=== PATIENT | male | born 1960 | race Caucasian/White ===

== ENCOUNTER → 2019-04-02 06:31 | Outpatient (CLI) | payer OTHER, SELFPAY ==
[2019-03-19 10:23] VITALS: BMI 34.9
--- NOTE | 2019-04-02 06:35 | CT_ITS ---
STUDY: CT SCAN HIP LEFT REASON FOR EXAM: Male, 58 years old. LEFT HIP-ISABELL PROTOCOL RADIATION DOSAGE (If Supplied By Facility): CTDIvol = ( 18.03 ) mGy, DLP = ( 1251.07 ) mGycm. Individualized dose optimization techniques were used for this CT.? TECHNIQUE: Multiple axial tomographic images of the hip joints were obtained for the OMAR O protocol. Sagittal and coronal reconstruction was obtained as well. COMPARISON: None. FINDINGS: There is a marked degree of the joint space narrowing and osteoarthritis of the left hip joint. Multiple subchondral cysts are seen. There is also evidence of acetabular spurring. CT/Extremity Lower without Contra IMPRESSION: Moderate degree of osteoarthritis and degenerative changes of the left hip joint with multiple subchondral cysts and acetabular spurring. Electronically Signed: Fabrice Conklin, at 9:13 EST , Service support ,
== END ==
PROVIDERS: Family Provider Family Medicine; PCP Family Medicine; Referring Provider Specialist; Visit Provider Specialist
DX: M16.12 Unilateral primary osteoarthritis, left hip (principal)
CPT/HCPCS: 73700

== ENCOUNTER → 2019-04-04 13:44 | Outpatient (CLI) | payer OTHER, SELFPAY ==
[2019-03-19 10:23] VITALS: BMI 34.9
[2019-04-04 16:00] LABS: Albumin, Serum 3.6 g/dL (3.2-5.0)
== END ==
PROVIDERS: PCP Family Medicine; Referring Provider Specialist; Visit Provider Specialist
DX: Z01.812 Encounter for preprocedural laboratory examination (principal)
CPT/HCPCS: 36415; 82040

== ENCOUNTER 2019-04-11 06:44 | Day surgery (SDC) | payer OTHER, SELFPAY ==
[2019-03-19 10:23] VITALS: BP 131/71; PULSE 69; RESP 16; TEMP 36.8; O2SAT 95; BMI 34.9
--- NOTE | 2019-03-19 10:54 | SDCEKG_ITS ---
Test Reason : Blood Pressure : / mmHG Vent. Rate : 056 BPM Atrial Rate : 056 BPM P-R Int : 158 ms QRS Dur : 088 ms QT Int : 378 ms P-R-T Axes : 046 001 025 degrees QTc Int : 364 ms Sinus bradycardia Otherwise normal ECG Confirmed by CIARA RAYMUNDO, LEDA ([id number]), editor news TANA HANKS ([id number]) on 03/21/2019 10:37:25 AM Referred By: Shan Sims Confirmed By:LEDA URBINA MD
[2019-03-19 11:19] LABS: Absolute Lymphocyte Count 1.12 X10^3/uL (0.83-4.51); Absolute Neutrophil Count 3.9 X10^3/uL (2.0-7.7); Basophil# 0.03 X10^3/uL; Basophil% 0.5 % (0-1); Eosinophil# 0.11 X10^3/uL; Hematocrit 45.7 % (40-54); Hemoglobin 15.3 g/dL (13.0-16.5); Lymphocyte # 1.12 X10^3/ul (4.0); Lymphocyte % 19.9 % (19-41); Mean Corp Hgb Conc 33.5 g/dL (32-36); Mean Corpuscular Hgb 30.8 pg (27.0-32.0); Mean Platelet Vol. 9.1 fl (6.2-12.0); Monocyte# 0.44 X10^3/uL; Monocyte% 7.8 % (0-10); NRBC Flagged by Analyzer 0 % (0-5); Neutrophil # 3.91 X10^3/uL (2.7-7.7); Neutrophil % 69.6 % (47-70); Platelet Count 251 K/mm3 (150-450); RBC Distribution Width CV 12.6 % (11.6-14.6); RBC Distribution Width SD 42.7 fl (35.1-43.9); Red Blood Count 4.97 M/mm3 (4.6-6.2); White Blood Count 5.6 K/mm3 (4.4-11.0)
[2019-03-19 12:07] LABS: Anion Gap 2 (5-15); BUN 17 mg/dL (7-18); BUN/Creat Ratio 20.9 RATIO (10-20); Calcium,Total 8.9 mg/dL (8.5-10.1); Chloride 110 mmol/L (98-107); Creatinine, Serum 0.81 mg/dL (0.70-1.30); EST Glomerular Filtration Rate 103 mL/min (>60); Est Glom Filt Rate - Afr Amer 125 mL/min (>60); Estimated Creatinine Clearance 96.98 ml/min; Glucose 88 mg/dL (74-106); Potassium 4.4 mmol/L (3.5-5.1); Sodium Level 139 mmol/L (136-145)
--- NOTE | 2019-03-19 12:39 | HP.PCM_ITS ---
History and Physical History and Physical Patient Name: iRley Echavarria : 1960 From: MITCH WHATLEY PA-C DATE OF SURGERY: 04/11/2019 SCHEDULED PROCEDURE: left total hip arthroplasty HISTORY OF PRESENT ILLNESS: Preoperative history and physical exam was performed on March 19, 2019. This is a 58-year-old male who is been having ongoing pain for over 1 year with regards to his left hip. Patient states the pain has been progressively getting worse. Patient's pain is aching, sharp, sore. Pain is increased going up and down stairs, walking. Patient has difficult time with activities of daily living including getting dressed while trying to put on shoes and socks, sleeping, and running. Pain is located in the groin. Patient does have start up pain. Pain awakens him at night occasionally. He has difficult time sleeping. Patient has tried rest with minimal relief. He has tried home exercises and career transition specialist with minimal relief. Patient also also tried nonsteroidal anti-inflammatories including ibuprofen and meloxicam. He denies previous surgeries on the left hip. Denies any recent fevers, chills, recent infections. After failing conservative measures and discussing treatment options with Dr. Shan Sims, the patient does wish to proceed with a left total hip arthroplasty. We are obtaining surgical clearance from his primary care physician Dr. Street. Patient does have medical history pertinent for sleep apnea in which she uses CPAP machine. REVIEW OF SYSTEMS: ROS: Const: Denies change in appetite, fever and weight change. CV: Denies chest pain, heart murmur and irregular heartbeat. Resp: Denies cough, pneumonia, shortness of breath, tuberculosis and wheezing. GI: Denies constipation, diarrhea, heartburn, nausea, rectal itching, bloody stools and vomiting. : Denies incontinence. Musculo: Reports pain and trouble walking, but denies leg swelling and weakness. Skin: Denies Raynaud's, history of shingles and tattoo. Neuro: Denies ambulatory dysfunction, dizziness, numbness/tingling and tremor. Psych: Denies anxiety, insomnia and stress. Elio/Lymph: Denies anemia, bleeding/bruising tendency and past transfusion. Reviewed, no changes. PAST MEDICAL HISTORY: Advance Care Plan: PMH: Medical Problems: Sleep Apnea Accidents: LT Arm FX - A CHILD Surgical Hx: None Anesthesia Complications: None Assistive Devices: Glasses, Hearing Aid, Cpap Reviewed and updated. 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 Personal Habits: Cigarette Use: Never Smoked Cigarettes.Smokeless Tobacco: Never Used Smokeless Tobacco.E-Cigarette Use: Never used.Alcohol: Denies use.Drug Use: Denies Use.Enjoy Exercising: Exercises 1-3 x/month. Reviewed, no changes. VITALS: Ht: 69.5 Wt: 240lb Wt k.864 BMI: 34.9 BP: 122/78 Pulse: 76 Resp: 16 T: 97.9 T: 36.6C ALLERGIES: No Known Drug Allergy MEDICATIONS: Oxycodone HCL 5 mg 1-2 tab by mouth every 4 hours, Promethazine HCL 12.5 mg 1-2 tablets by mouth every 6 hours, Famotidine 20 mg 1 by mouth every day, Meloxicam 15 mg take 1 tablet by mouth every day, Magnesium 300 mg 1 tab by mouth daily, Zinc 50 mg 1 tab by mouth daily, Vitamin D3 125MG - 2 caps by mouth daily, Turmeric 133MG - 2 tabs by mouth daily PRE-OP EXAM: General appearance:NORMAL Other: Eyes: Conjunctivae and lids: NORMAL Pupils: ERR Ears, Nose, Mouth, and Throat: NORMAL Other: Inspection of lips, teeth and gums: NORMAL Other: Neck: Examination of neck: no masses noted. Respiratory: Assessment of respiratory effort: NORMAL Other: Auscultation of lungs: clear to auscultation no wheezes, rhonchi or rales. Cardiovascular: Auscultation of heart: regular rate and rhythm, no murmurs, gallops or rubs. Exam of carotid arteries: NORMAL Other: Gastrointestinal: Exam of abdomen: soft, nontender, nondistended bowel sounds present. PHYSICAL EXAMINATION: Patient does walk with an antalgic gait. Left hip is cool to touch without erythema or signs of infection. Patient does have obligatory external rotation with flexion on the left hip. Range of motion left hip: Flexion 90, internal rotation 10, external rotation 25. Pain is increased with range of motion. There is 2 mm shortness on the left when compared to the right lower extremity. Sensation intact to light touch. Neurovascularly intact. IMAGING STUDIES: X-rays were obtained at [facility] [place] on March 19, 2019 including 3 views AP pelvis, AP left hip, crossfire lateral left hip reveals no acute findings for fracture or dislocation. Patient has severe end-stage osteoarthritis of the left hip with complete loss of joint space, subchondral sclerosis, and osteophyte formation. There is subchondral cyst formation in the acetabulum and femoral head resulting and femoral head collapse and shortening of the left hip. Joint space narrowing with osteophyte formation, subchondral sclerosis with the right hip. IMPRESSION: 1. Severe left hip osteoarthritis 2. Sleep apnea PLAN: Dr. Shan Sims did discuss and review with the patient all treatment options including surgical versus nonsurgical options. Patient does wish to proceed with the above-stated procedure. Potential risks, benefits, and complications of the procedure were discussed in detail including but not limited to , infection, nerve and blood vessel damage, persistent pain, numbness, tingling, paresthesias, blood clot, pulmonary embolism, and requirement for possible further surgery. The patient expressed full understanding and has no further questions for the doctor. Patient does agree to proceed with the above-stated procedure and has signed the surgery consent form. This dictation was created using voice recognition software. Phonetic and/or grammatical errors may exist. ___ I have re-examined the patient. There are no clinical changes since date of exam. ___ See progress notes for changes. ___ Dictated on admission Date: Time: Signature:
[2019-04-11] VITALS (11 sets, daily range): BP systolic 98–128; BP diastolic 67–83; PULSE 72–88; RESP 16; TEMP 36.3–36.9; O2SAT 92–99; BMI 34.9
[2019-04-11] MEDS: Gabapentin 600 MG Tablet PO (06:45)
[2019-04-11] MEDS: Magnesium Sulfate 4gm/100mL 4 GM/100 ML IV.SOLN. IV (07:23)
[2019-04-11] MEDS: Acetaminophen 500 MG Tablet 1000 MG PO ×2 (07:24→14:00)
[2019-04-11] MEDS: Scopolamine 1mg/72hr Patch 1 PATCH TRANSDERM. (07:25)
[2019-04-11] MEDS: Celecoxib 200 MG Capsule 400 MG PO (07:26)
[2019-04-11 07:30] LABS: Bedside Glucose 74 mg/dL (70-110)
[2019-04-11] MEDS: Lactated Ringers 1,000 ML 100 ML IV (07:33)
[2019-04-11] MEDS: Cefazolin 2 GM in 0.9% Normal Saline 100 ML IV (08:40)
--- NOTE | 2019-04-11 08:45 | RAD_ITS ---
STUDY: X-RAY - PELVIS AND LEFT HIP REASON FOR EXAM: Male, 58 years old. TOT. ANTERIOR HIP IN O.R. 7.6 SEC. FL. TECHNIQUE: 3 intraoperative views of the pelvis and hip were obtained. COMPARISON: None. FINDINGS: The patient is status post left hip replacement. There is good alignment. RAD/Hip 1 view with Pelvis IMPRESSION: Status post left hip replacement. Electronically Signed: Fabrice Conklin, at 12:22 EST , Service support ,
[2019-04-11] MEDS: dexAMETHasone 10 MG/ML Vial IV (08:58)
--- NOTE | 2019-04-11 10:22 | PCM.OPRPT ---
Report of Operation Date of Procedure: 04/11/19 Pre-Operative Diagnosis: Left hip primary osteoarthritis Post-Operative Diagnosis: Left hip primary osteoarthritis Surgery/Procedure Performed:: Left minimally invasive direct anterior robotic assisted total hip replacement Description of Surgical Findings:: Stable hip, equal leg lengths on radiograph research and development director: Ani Palacio Type of Anesthesia:: Spinal Anesthesiologist: Ross Peres Special Medications: 2 g Ancef, 1 g TXA at incision, 1 g TXA closure, 10 mg Decadron, joint cocktail (5 mg Duramorph, 30 mL of 0.5% Ropivicaine, 1000 units of epinephrine, 30 mg of Toradol), vancomycin Specimen's removed: Bony cuts Estimated Blood Loss (mL): 200 mL Fluids Replaced: 1000 mL crystalloid Description of Procedure: Components used: 1. Accolade 2 Arnegard femoral stem size 5 127? 2. Mohan trident 2 acetabular shell size 54 mm 3. Mohan X3 polyethylene E 4. Mohan Biolox delta 36mm, +5mm femoral head Brief history operative indications: 58 yo m who failed conservative measures for their hip osteoarthritis. X-rays were consistent with osteoarthritis including joint space narrowing, osteophyte formation and subchondral cysts. Total hip replacement was discussed with the patient with risks and benefits including but not limited to blood loss, DVTs, PEs, neurovascular damage, dislocation, general risks of anesthesia including loss of life. Patient demonstrated an understanding medical clearance is obtained the patient was consented for surgery. Procedure: On the date of procedure the patient's L hip was marked in the preoperative area. Patient was then taken back to the operating room where anesthesia assumed control of the C-spine and airway and administered anesthetic. Patient was transferred to the operating table and placed in the supine position. The hips were placed at the break of the bed and a sacral bump was placed. A checkpoint was placed on the tibial tubercle. The L lower extremity was then prepped out in a sterile fashion using chlorhexidine while the surgeon scrubbed. The PA was vital in the positioning of the patient. Upon reentering the room the L lower extremity was draped in the standard orthopedic fashion and the incision was marked. A timeout was called and everyone agreed upon the side, the site, the procedure be performed, antibody given, and patient's identity. 3 pins were placed in the right iliac crest with a small skin incision and blunt dissection down to the bone. After the skins were placed in a ray was placed for targeting. At this time left hip operative incision was made through skin, subcutaneous tissue, and fat down to fascia. The fascia was then incised and the TFL was retracted laterally. A retractor was placed on the lateral border of the femoral neck. Attention was directed to the inferior portion of the approach and all crossing vessels were identified and appropriately coagulated. A retractor was then placed on the medial portion of the femoral neck. The anterior capsule was then cleared of all soft tissue and then H shaped capsulotomy was made. The retractors were then placed inside the capsule. The checkpoint was placed. The checkpoints were registered. The femoral neck was identified and a cleanup cut was made. At this time a power corkscrew was used to remove the femoral head. Attention was then turned toward the acetabulum where the soft tissues were appropriately retracted and debrided. The acetabulum was registered. The robot was brought into the field sterilely and the acetabulum was reamed to 54 mm. A 54 mm cup was then selected and impacted into place. Acetabular liner was impacted into place and locking mechanism was verified. The position of the acetabular cup was then verified under live fluoroscopy. Attention was then turned to the femur. Soft tissue releases on the medial and lateral femoral neck were appropriately done, the leg was externally rotated and lateralized. A Mcgarry retractor was placed medially and proximally to the greater trochanter this allowed appropriate visualization and exposure of the femoral canal. Rongeour was then used to remove excess lateral bone. A canal finder and entry broach were used to open the proximal canal. Once we verified we were down the femoral canal we subsequently broached up to a size 5 femur. The appropriate neck was placed in the previously selected head was trialed with a +5 mm neck. Traction was pulled and the hip was reduced with internal rotation. Once it was appropriately reduced and stability was checked. There was minimal shuck, equal leg lengths and appropriate stability with hyperextension and external rotation as well as with 90? flexion and internal rotation. Fluoroscopy was then also used to verify the position of the components and leg lengths using the contralateral side for comparison. The trial components were then dislocated the proximal femur was again exposed and the components were removed from the wound. The final components were verified and opened. The wound was copiously irrigated out with normal saline. The acetabulum was checked for any residual debris. The final components were placed and impacted. Traction and internal rotation were again used to reduce the hip. After adequate reduction the hip remained stable with appropriate leg lengths. The final components were once again checked with live fluoroscopy and were found to be satisfactory. The wound was then copiously irrigated with normal saline once more, and hemostasis was obtained. Closure was then done using #1 Vicryl runner to close the fascia. A 2-0 vicryl interuppted sutures were used to close the subcutaneous skin. A 3-0 Monocryl and Steri-Strips were used for final skin closure. A Silverlon dressing was placed. Pins were removed from the contralateral iliac crest and this was closed using 2-0 Vicryl and Monocryl and a sterile dressing was placed. Patient was awakened by anesthesia and transferred to the [facility]. Patient was then transferred to the PACU for recovery. Postoperative plan: Patient will get 24 hours postop antibiotics. Patient will get in-house physical therapy and will be weight-bear as tolerated. Patient will follow up in office in 2 weeks for a wound check and x-rays. - Complications No intraoperative complications - Admit VTE Documentation VTE Present on Admission: No VTE Mechan Device Prophylaxis: SCD's, Thigh High FARTUN Hose VTE Pharm Prophylaxis ordered?: Yes
[2019-04-11] MEDS: Lactated Ringers 1,000 ML 125 ML IV (10:30)
[2019-04-11] MEDS: Lactated Ringers 1,000 ML 999 ML IV (11:16)
--- NOTE | 2019-04-11 11:25 | RAD_ITS ---
STUDY: X-RAY - PELVIS AND LEFT HIP REASON FOR EXAM: Male, 58 years old. Post op TECHNIQUE: 2 views of the pelvis and hip. COMPARISON: Comparison is made with prior study done earlier today. FINDINGS: The patient is status post left hip replacement. There is good alignment. Postoperative soft tissue changes. /Arthritis of the right hip joint with findings suggestive of right femoral acetabular impingement. RAD/HIP, UNI W/ Pelvis 2-3 Views IMPRESSION: Status post left total hip replacement. There is good alignment. Electronically Signed: Fabrice Conklin, at 12:23 EST , Service support ,
[2019-04-11] MEDS: Cefazolin 1 GM/50 ML BAG IV (11:30)
== END 2019-04-11 17:00 | disposition home or self-care (01) ==
LOC: SDC 06:46 → AC 06:47
PROVIDERS: Family Provider Family Medicine; PCP Family Medicine; Referring Provider Specialist; Visit Provider Specialist
PROC: (CPT 27284; principal; 2019-04-11 08:20)
DX: M16.12 Unilateral primary osteoarthritis, left hip (principal); G47.30 Sleep apnea, unspecified; K21.9 Gastro-esophageal reflux disease without esophagitis; Z79.1 Long term (current) use of non-steroidal anti-inflammatories (NSAID); Z79.891 Long term (current) use of opiate analgesic; Z79.899 Other long term (current) drug therapy
CPT/HCPCS: 27130; 73501; 73502; 76000; 80048; 82962; 85025; 87077; 87081; 93005; 97162; C1776; J7040; J7120; J2405

== ENCOUNTER → 2020-02-25 | Outpatient (CLI) | payer OTHER, SELFPAY ==
[2019-04-11 07:33] VITALS: BMI 34.9
--- NOTE | 2020-02-25 | COLBX_PTH ---
PATIENT: JEANINE VALLECILLO LOC: [facility] U#:[id number] AGE/SX: 59/M ROOM: RE02/25/[address]: Dr. Jamie Becerril MD : 1960 BED: DIS: 02/25/2020 SPEC #: [id number] RECD: 02/25/20 15:04 STATUS: APOLONIA HARJINDER #: [id number] MELY: 02/25/20 00:[address]: Jamie Becerril DEPT: SURGICAL PATHOLOGY RECD BY: José Roasles ENTERED: 02/26/20 07:50 SP TYPE: COLON BX OT DR: Dr. Harman Schroeder, [facility] Tissues: COLON BIOPSY Procedures: Surgery Specimen Level IV HEADER OPERATION: Colonoscopy with biopsy PRE-OP DIAGNOSIS: Screening polyp TISSUE SUBMITTED: Right colon polyp biopsy, rule out adenoma MICROSCOPIC DIAGNOSIS Right colon polyp, biopsy: Tubular adenoma. RIGOBERTO:austen 02/27/20 MICROSCOPIC DESCRIPTION Slides are reviewed. GROSS DESCRIPTION Received in fixative is one container labeled with the patient's name and designated right colon polyp. The specimen consists of two irregular fragments of light crews soft tissue that in aggregate measure 0.5 x 0.4 x 0.1 cm. The specimen is totally submitted in one cassette. / SJ:austen 02/26/20 TC:1 CPT: 99726
== END | disposition home or self-care (01) ==
LOC: LABSPEC 15:54
PROVIDERS: PCP Family Medicine; Visit Provider Internal Medicine Gastroenterology
DX: Z12.11 Encounter for screening for malignant neoplasm of colon (principal); K63.5 Polyp of colon
CPT/HCPCS: 88305

== ENCOUNTER → 2020-11-25 09:26 | Outpatient (CLI) | payer OTHER, SELFPAY ==
[2020-11-25 12:10] LABS: Absolute Neutrophil Count 3.7 X10^3/uL (2.0-7.7); Basophil# 0.03 X10^3/uL; Basophil% 0.6 % (0-1); Eosinophil# 0.08 X10^3/uL; Eosinophils% 1.5 % (0-5); Hematocrit 46.9 % (40-54); Hemoglobin 15.9 g/dL (13.0-16.5); Lymphocyte % 18.7 % (19-41); Mean Corp Hgb Conc 33.9 g/dL (32-36); Mean Corpuscular Hgb 31.7 pg (27.0-32.0); Mean Corpuscular Volume 93.6 fL (80-94); Mean Platelet Vol. 9.3 fl (6.2-12.0); Monocyte# 0.52 X10^3/uL; Monocyte% 9.7 % (0-10); NRBC Flagged by Analyzer 0 % (0-5); Neutrophil % 69.3 % (47-70); Platelet Count 248 K/mm3 (150-450); RBC Distribution Width CV 12.6 % (11.6-14.6); RBC Distribution Width SD 43.7 fl (35.1-43.9); Red Blood Count 5.01 M/mm3 (4.6-6.2); White Blood Count 5.3 K/mm3 (4.4-11.0)
[2020-11-25 12:35] LABS: ALB/GLOB Ratio 0.9 RATIO (0.9-2.4); AST(SGOT) 22 U/L (15-37); Alanine Aminotransfer ALT/SGPT 32 U/L (16-61); Albumin, Serum 3.4 g/dL (3.2-5.0); Alkaline Phosphatase 84 U/L (45-117); Anion Gap 6 (5-15); BUN 13 mg/dL (7-18); BUN/Creat Ratio 13.8 RATIO (10-20); Calcium,Total 8.9 mg/dL (8.5-10.1); Chloride 107 mmol/L (98-107); Cholesterol 170 mg/dL (200); Creatinine, Serum 0.94 mg/dL (0.70-1.30); EST Glomerular Filtration Rate 86 mL/min (>60); Est Glom Filt Rate - Afr Amer 104 mL/min (>60); Globulin 3.8 g/dL (2.2-4.2); Glucose 92 mg/dL (74-106); High Density Lipoprotein 44 mg/dL; PSA,Total - Annual Screen 0.69 ng/mL (0.00-4.00); Potassium 4.2 mmol/L (3.5-5.1); Protein, Total 7.2 g/dL (6.4-8.2); Sodium Level 138 mmol/L (136-145); Triglycerides 75 mg/dL; Very Low Density Lipoprotein 15 mg/dL (5-40)
== END ==
PROVIDERS: PCP Family Medicine; Referring Provider Family Medicine; Visit Provider Family Medicine
DX: Z00.00 Encounter for general adult medical examination without abnormal findings (principal); Z12.5 Encounter for screening for malignant neoplasm of prostate
CPT/HCPCS: 36415; 80053; 80061; 84153; 85025; G0103

== ENCOUNTER → 2022-11-23 | Outpatient (CLI) | payer OTHER, SELFPAY ==
[2022-11-23 15:12] LABS: Absolute Lymphocyte Count 1.19 X10^3/uL (0.83-4.51); Absolute Neutrophil Count 4.1 X10^3/uL (2.0-7.7); Basophil# 0.03 X10^3/uL; Basophil% 0.5 % (0-1); Eosinophil# 0.07 X10^3/uL; Eosinophils% 1.2 % (0-5); Hematocrit 49.8 % (40-54); Hemoglobin 15.9 g/dL (13.0-16.5); Lymphocyte # 1.19 X10^3/ul (0.83-4.51); Lymphocyte % 20.5 % (19-41); Mean Corp Hgb Conc 31.9 g/dL (32-36); Mean Corpuscular Hgb 30.8 pg (27.0-32.0); Mean Corpuscular Volume 96.5 fL (80-94); Mean Platelet Vol. 9.9 fl (6.2-12.0); Monocyte# 0.42 X10^3/uL; Monocyte% 7.2 % (0-10); NRBC Flagged by Analyzer 0 % (0-5); Neutrophil # 4.07 X10^3/uL (2.7-7.7); Neutrophil % 70.3 % (47-70); Platelet Count 281 K/mm3 (150-450); RBC Distribution Width CV 12.6 % (11.6-14.6); RBC Distribution Width SD 45.5 fl (35.1-43.9); Red Blood Count 5.16 M/mm3 (4.6-6.2); White Blood Count 5.8 K/mm3 (4.4-11.0)
[2022-11-23 16:11] LABS: ALB/GLOB Ratio 0.9 RATIO (0.9-2.4); AST(SGOT) 26 U/L (15-37); Alanine Aminotransfer ALT/SGPT 29 U/L (16-61); Albumin, Serum 3.6 g/dL (3.2-5.0); Alkaline Phosphatase 90 U/L (45-117); Anion Gap 5 (5-15); BUN 14 mg/dL (7-18); BUN/Creat Ratio 15.4 RATIO (10-20); Calcium,Total 8.8 mg/dL (8.5-10.1); Chloride 106 mmol/L (98-107); Cholesterol 184 mg/dL (200); Creatinine, Serum 0.91 mg/dL (0.70-1.30); EST Glomerular Filtration Rate 89 mL/min (>60); Est Glom Filt Rate - Afr Amer 108 mL/min (>60); Globulin 3.8 g/dL (2.2-4.2); Glucose 98 mg/dL (74-106); High Density Lipoprotein 48 mg/dL; Potassium 4.6 mmol/L (3.5-5.1); Protein, Total 7.4 g/dL (6.4-8.2); Sodium Level 139 mmol/L (136-145); Triglycerides 78 mg/dL; Very Low Density Lipoprotein 16 mg/dL (5-40)
== END | disposition home or self-care (01) ==
LOC: BFHLAB 11:36
PROVIDERS: PCP Family Medicine; Referring Provider Family Medicine; Visit Provider Family Medicine
DX: Z00.00 Encounter for general adult medical examination without abnormal findings (principal); Z12.5 Encounter for screening for malignant neoplasm of prostate
CPT/HCPCS: 36415; 80053; 80061; 84153; 85025; G0103

== ENCOUNTER 2023-04-13 05:21 | Day surgery (SDC) | payer OTHER, SELFPAY ==
[2023-03-16 08:54] LABS: Absolute Lymphocyte Count 0.76 X10^3/uL (0.83-4.51); Absolute Neutrophil Count 3.3 X10^3/uL (2.0-7.7); Basophil# 0.03 X10^3/uL; Basophil% 0.6 % (0-1); Eosinophil# 0.09 X10^3/uL; Eosinophils% 1.9 % (0-5); Hematocrit 44.9 % (40-54); Hemoglobin 15.2 g/dL (13.0-16.5); Lymphocyte # 0.76 X10^3/ul (0.83-4.51); Lymphocyte % 16.2 % (19-41); Mean Corp Hgb Conc 33.9 g/dL (32-36); Mean Corpuscular Hgb 32.3 pg (27.0-32.0); Mean Corpuscular Volume 95.5 fL (80-94); Mean Platelet Vol. 8.7 fl (6.2-12.0); Monocyte# 0.51 X10^3/uL; Monocyte% 10.9 % (0-10); NRBC Flagged by Analyzer 0 % (0-5); Neutrophil # 3.28 X10^3/uL (2.7-7.7); Neutrophil % 70.2 % (47-70); Platelet Count 220 K/mm3 (150-450); RBC Distribution Width CV 12.5 % (11.6-14.6); RBC Distribution Width SD 44.3 fl (35.1-43.9); White Blood Count 4.7 K/mm3 (4.4-11.0)
[2023-03-16 09:35] LABS: Magnesium 2.3 mg/dL (1.6-2.6)
[2023-03-16 09:58] LABS: Albumin, Serum 3.3 g/dL (3.2-5.0); Anion Gap 2 (5-15); BUN 13 mg/dL (7-18); BUN/Creat Ratio 14.9 RATIO (10-20); Calcium,Total 8.8 mg/dL (8.5-10.1); Chloride 107 mmol/L (98-107); Creatinine, Serum 0.87 mg/dL (0.70-1.30); EST Glomerular Filtration Rate 93 mL/min (>60); Est Glom Filt Rate - Afr Amer 113 mL/min (>60); Glucose 100 mg/dL (74-106); Potassium 4.5 mmol/L (3.5-5.1); Sodium Level 139 mmol/L (136-145)
[2023-03-25 15:04] LABS: Absolute Neutrophil Count 4.2 X10^3/uL (2.0-7.7); Basophil# 0.03 X10^3/uL; Basophil% 0.5 % (0-1); Eosinophil# 0.07 X10^3/uL; Eosinophils% 1.2 % (0-5); Hematocrit 47.4 % (40-54); Hemoglobin 15.7 g/dL (13.0-16.5); Lymphocyte % 20.5 % (19-41); Mean Corp Hgb Conc 33.1 g/dL (32-36); Mean Corpuscular Hgb 31.3 pg (27.0-32.0); Mean Corpuscular Volume 94.4 fL (80-94); Mean Platelet Vol. 9.1 fl (6.2-12.0); Monocyte# 0.38 X10^3/uL; Monocyte% 6.5 % (0-10); NRBC Flagged by Analyzer 0 % (0-5); Neutrophil # 4.15 X10^3/uL (2.7-7.7); Platelet Count 297 K/mm3 (150-450); RBC Distribution Width CV 12.8 % (11.6-14.6); RBC Distribution Width SD 43.9 fl (35.1-43.9); Red Blood Count 5.02 M/mm3 (4.6-6.2); White Blood Count 5.9 K/mm3 (4.4-11.0)
[2023-03-25 15:33] LABS: Anion Gap 4 (5-15); BUN 16 mg/dL (7-18); BUN/Creat Ratio 16.6 RATIO (10-20); Chloride 107 mmol/L (98-107); Creatinine, Serum 0.96 mg/dL (0.70-1.30); EST Glomerular Filtration Rate 83 mL/min (>60); Est Glom Filt Rate - Afr Amer 101 mL/min (>60); Glucose 133 mg/dL (74-106); Sodium Level 139 mmol/L (136-145)
[2023-03-28 11:12] LABS: Albumin, Serum 3.7 g/dL (3.2-5.0)
--- NOTE | 2023-03-28 11:48 | HP.PCM_ITS ---
History and Physical History and Physical? Patient Name: Riley Echavarria : 1960 From:? MITCH WHATLEY PA-C? DATE OF PRE-OPERATIVE EXAM: 03/28/2023 DATE OF SURGERY:? 04/13/2023 SCHEDULED PROCEDURE:? Right total hip arthroplasty HISTORY OF PRESENT ILLNESS: Preoperative history and physical exam was performed on March 28, 2023.? This is a 62-year-old male who is been having ongoing pain for over 6 months with his right hip.? He does have past history of a left total hip arthroplasty by Dr. Shan Sims on April 11, 2019.? He is doing well from the left hip.? His pain can reach 6/10 with activities.? His pain is increased with going up and down stairs, driving, walking.? Pain is been intermittent, dull, aching, sharp.? He has difficulty with activities of daily living including shopping and any walking.? Patient has attempted conservative measures including rest, elevation, manager critical care unit and oral medications with minimal relief.? He has attempted Tylenol and ibuprofen and meloxicam without relief.? He denies past history of surgery on the right hip.? After failing conservative measures and discussing all treatment options with Dr. Shan Sims, the patient does wish to proceed with a right total hip arthroplasty.? We have obtain surgical clearance from the primary care provider Dr. Schroeder.? He has medical history pertinent for sleep apnea with use of CPAP.? He denies past history of DVT or pulmonary embolism. REVIEW OF SYSTEMS: Review Of Systems: Constitutional: Denies change in appetite, fever and weight change. Cardiovasular: Denies chest pain, heart murmur and irregular heartbeat. Respiratory: Denies cough, pneumonia, shortness of breath, tuberculosis and wheezing. Gastrointestinal: Denies constipation, diarrhea, heartburn, nausea, rectal itching, bloody stools and vomiting. Genitourinary: Denies incontinence. Musculoskeletal: Reports pain and trouble walking, but denies leg swelling and weakness. Skin: Denies Raynaud's, history of shingles and tattoo. Neurological: Denies ambulatory dysfunction, dizziness, numbness/tingling and tremor. Psychiatric: Denies anxiety, insomnia and stress. Hematologic/Lymphatic: Denies anemia, bleeding/bruising tendency and past transfusion. Reviewed, no changes. PAST MEDICAL HISTORY: Advance Care Plan: No Advance Directives Effective Date: 04/25/2019 Past Medical History: Medical Problems: Sleep Apnea Accidents: LT Arm FX - A CHILD Surgical Hx: Hip Replacement LT - (04/11/2019) SAW @ [facility] Anesthesia Complications: None Assistive Devices: Glasses, Hearing Aid, Cpap Reviewed, no changes. 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 Personal Habits:? Cigarette Use: Never Smoked Cigarettes.Smokeless Tobacco: Never Used Smokeless Tobacco.E-Cigarette Use: Never used.Alcohol: Denies use.Drug Use: Denies Use.Enjoy Exercising: Exercises 1-3 x/month. Reviewed, no changes. VITALS: Ht: 69.9 Wt: 242lb Wt k.771 BMI: 34.8 BP: 142/76 Pulse: 77 T: 97.3 T: 36.3C Pain Level: 6 O2SatR: 95 ALLERGIES: No Known Drug Allergy? MEDICATIONS: Oxycodone HCL 5 mg 1-2 tablets by mouth every 4 hours, Zofran 4 mg 1-2 tablets by mouth every 8 as needed nausea, Famotidine 20 mg 1 tablet by mouth every day, Meloxicam 7.5 mg 1 tablet by mouth twice a day, Magnesium 500 mg two caps po once daily, Kensal 3 1000 mg two caps po once daily, QC Tumeric Complex 500 mg two caps po once daily, Zinc 100 mg one tab po once daily, Vitamin D3 25 mcg (1000 Ut) one cap po once daily, Vitamin K2 100 mcg one cap po once daily, Macular Vitamin Benefit? two tabs po once daily, Neuroflo Plus? three capsules daily PRE-OP EXAM:? General appearance:NORMAL? ? ? Other: Eyes: Conjunctivae and lids: NORMAL? Pupils: ERR Ears, Nose, Mouth, and Throat: NORMAL? Other: Inspection of lips, teeth and gums: NORMAL? ?Other: Neck: Examination of neck: no masses noted. Respiratory: Assessment of respiratory effort: NORMAL? ?Other: ?Auscultation of lungs: clear to auscultation no wheezes, rhonchi or rales. Cardiovascular:? Auscultation of heart: regular rate and rhythm, no murmurs, gallops or rubs. PHYSICAL EXAMINATION: Patient walks with an antalgic gait.? Right hip is without erythema or signs of infection.? He has obligatory external rotation with flexion.? Range of motion: Flexion 80, internal rotation 10, external rotation 18.? He has increased pain with range of motion.? Sensation intact to light touch. IMAGING STUDIES: Previous x-rays of the right hip reveal joint space narrowing, subchondral sclerosis, osteophyte formation consistent with severe stage IV bone on bone erosive osteoarthritis IMPRESSION: 1.? Severe right hip osteoarthritis 2.? Presence of left total hip arthroplasty 2020 3.? Sleep apnea with use of CPAP 4.? Obesity with BMI 34.8 5.? Elevated blood pressure without diagnosis of hypertension PLAN: Dr. Shan Sims did discuss and review with the patient all treatment options including surgical versus nonsurgical options.? Patient does wish to proceed with the above-stated procedure.? Potential risks, benefits, and complications of the procedure were discussed in detail including but not limited to , infection, nerve and blood vessel damage, persistent pain, numbness, tingling, paresthesias, blood clot, pulmonary embolism, and requirement for possible further surgery.? The patient expressed full understanding and has no further questions for the doctor.? Patient does agree to proceed with the above-stated procedure and has signed the surgery consent form. POST-OP MEDICATION PLAN: Pain Medications:? Patient was given the following medications at the preoperative visit: Famotidine, meloxicam, oxycodone, Zofran.? He was instructed to take Aspirin 81 mg enteric-coated, extra strength Tylenol, senna.? He has a walker that he will bring to day of surgery. DVT Prophylaxis:? Aspirin 81 mg twice daily for 4 weeks postoperatively.? Denies past history of DVT or pulmonary embolism This dictation was created using voice recognition software. Phonetic and/or grammatical errors may exist. ___? I have re-examined the patient.? There are no clinical changes since date of exam. ___? See progress notes for changes. ___? Dictated on admission Date: ? ? ?Time: Signature:
[2023-04-13] VITALS (11 sets, daily range): BP systolic 97–128; BP diastolic 44–85; PULSE 69–96; RESP 15–16; TEMP 36.1–36.6; O2SAT 93–99; BMI 35.4
--- NOTE | 2023-04-13 | HIP_PTH ---
PATHOLOGY RESULTS PATIENT: JEANINE VALLECILLO LOC: [facility] U#:[id number] AGE/SX: 62/M ROOM: RE04/13/[address]: Dr. Shan Sims MD : 1960 BED: DIS: 04/13/2023 SPEC #: [id number] RECD: 04/13/23 11:35 STATUS: APOLONIA REMarcelina #: [id number] MELY: 04/13/23 00:[address]: Shan Sims DEPT: SURGICAL PATHOLOGY RECD BY: Myesha Ruvalcaba ENTERED: 04/13/23 11:35 SP TYPE: TOTAL HIP OTHR DR: DO Glenroy Palafox PA-C Tissues: Hip, NOS Procedures: Decalcification bone/plaque Surgery Specimen Level IV HEADER OPERATION: ERAS, anterior right total hip arthroplasty PRE-OP DIAGNOSIS: Severe right hip osteoarthritis TISSUE SUBMITTED: Right femoral head, bone and debrided tissue MICROSCOPIC DIAGNOSIS Right femoral head, total hip replacement/resection: Femoral head with degenerative osteoarthritic changes. Adipose tissue and reactive synovial tissue. RIGOBERTO:austen 04/18/2023 MICROSCOPIC DESCRIPTION Slides are reviewed. GROSS DESCRIPTION Received is one container labeled with the patient's name and designated right femoral head, bone and debrided tissue. The specimen consists of a crews femoral head measuring 5.0 x 5.0 x 4.5 cm. Detached piece of bone is present consistent with femoral neck measuring 4.0 x 3.5 x 1.2 cm. The soft tissue predominantly consists of bone reamings and measures 7.0 x 6.5 x 2.0 cm. A small piece of soft tissue is also attached to the femoral head which measures 2.0 x 2.0 x 0.5 cm. The articular surface displays prominent osteophyte formation, eburnation and bone erosion. Social Media Assistant sections are submitted in two cassettes as follows: 1 - soft tissue, 2 - bone after decalcification. / RIGOBERTO:austen 04/13/2023 TC:5 CPT: 33184, 04513
[2023-04-13] MEDS: Lactated Ringers 1,000 ML 75 ML IV (06:07)
[2023-04-13] MEDS: Lactated Ringers 1,000 ML 999 ML IV ×2 (06:07→09:25)
[2023-04-13] MEDS: Magnesium 1 GM over 15 mins IV (06:07)
[2023-04-13] MEDS: Celecoxib 200 MG Capsule 400 MG PO (06:25)
[2023-04-13] MEDS: Gabapentin 600 MG Tablet PO (06:25)
[2023-04-13] MEDS: Acetaminophen 500 MG Tablet 1000 MG PO ×2 (06:25→15:19)
--- NOTE | 2023-04-13 07:03 | PCM.OPRPT ---
Report of Operation Date of Procedure: 04/13/23 Pre-Operative Diagnosis: Right hip primary osteoarthritis Post-Operative Diagnosis: Right hip primary osteoarthritis Surgery/Procedure Performed:: Right minimally invasive direct anterior total hip replacement Description of Surgical Findings:: Stable hip with equal leg length Surgeon: Shan Sims forklift technician: Kwame Vazquez Type of Anesthesia: Spinal Anesthesiologist: Ross Peres Special Medications: 2 g Ancef, 1 g TXA at incision, 1 g TXA closure, 10 mg Decadron, joint cocktail (5 mg Duramorph, 30 mL of 0.5% Ropivicaine, 1000 units of epinephrine, 30 mg of Toradol) Specimen's removed: Bony cuts Estimated Blood Loss (mL): 350 Fluids Replaced: 700 ml Description of Procedure: Components used: 1. Accolade 2 Fleming femoral stem size 6 127? 2. Fleming trident 2 acetabular shell size 54 mm 3. Fleming X3 polyethylene E 4. Mohan Biolox delta 36mm, 0mm femoral head Brief history operative indications: 62 yo M who failed conservative measures for their hip osteoarthritis. X-rays were consistent with osteoarthritis including joint space narrowing, osteophyte formation and subchondral cysts. Total hip replacement was discussed with the patient with risks and benefits including but not limited to blood loss, DVTs, PEs, neurovascular damage, dislocation, general risks of anesthesia including loss of life. Patient demonstrated an understanding medical clearance is obtained the patient was consented for surgery. Procedure: On the date of procedure the patient's right hip was marked in the preoperative area. Patient was then taken back to the operating room where anesthesia assumed control of the C-spine and airway and administered anesthetic. Patient was transferred to the operating table and placed in the supine position. The hips were placed at the break of the bed and a sacral bump was placed. The right lower extremity was then prepped out in a sterile fashion using chlorhexidine while the surgeon scrubbed. The PA was vital in the positioning of the patient. Upon reentering the room the right lower extremity was draped in the standard orthopedic fashion and the incision was marked. A timeout was called and everyone agreed upon the side, the site, the procedure be performed, antibody given, and patient's identity. At this time incision was made through skin, subcutaneous tissue, and fat down to fascia. The fascia was then incised and the TFL was retracted laterally. A retractor was placed on the lateral border of the femoral neck. Attention was directed to the inferior portion of the approach and all crossing vessels were identified and appropriately coagulated. A retractor was then placed on the medial portion of the femoral neck. The anterior capsule was then cleared of all soft tissue and then H shaped capsulotomy was made. The retractors were then placed inside the capsule. The femoral neck was identified and a cleanup cut was made. At this time a power corkscrew was used to remove the femoral head. Attention was then turned toward the acetabulum where the soft tissues were appropriately retracted and the acetabulum was sequentially reamed to 54 mm. A 54 mm cup was then selected and impacted into place. Acetabular liner was impacted into place and locking mechanism was verified. The position of the acetabular cup was then verified under live fluoroscopy. Attention was then turned to the femur. Soft tissue releases on the medial and lateral femoral neck were appropriately done, the leg was externally rotated and lateralized. A Mcgarry retractor was placed medially and proximally to the greater trochanter this allowed appropriate visualization and exposure of the femoral canal. Rongeour was then used to remove excess lateral bone. A canal finder and entry broach were used to open the proximal canal. Once we verified we were down the femoral canal we subsequently broached up to a size 6 femur. The appropriate neck was placed in the previously selected head was trialed with a 0 mm neck. Traction was pulled and the hip was reduced with internal rotation. Once it was appropriately reduced and stability was checked. There was minimal shuck, equal leg lengths and appropriate stability with hyperextension and external rotation as well as with 90? flexion and internal rotation. Fluoroscopy was then also used to verify the position of the components and leg lengths using the contralateral side for comparison. The trial components were then dislocated the proximal femur was again exposed and the components were removed from the wound. The final components were verified and opened. The wound was copiously irrigated out with normal saline. The acetabulum was checked for any residual debris. The final components were placed and impacted. Traction and internal rotation were again used to reduce the hip. After adequate reduction the hip remained stable with appropriate leg lengths. The final components were once again checked with live fluoroscopy and were found to be satisfactory. The wound was then copiously irrigated with normal saline once more, and hemostasis was obtained. Closure was then done using #1 Vicryl runner to close the fascia. A 2-0 vicryl interuppted sutures were used to close the subcutaneous skin. A 3-0 Monocryl and Steri-Strips were used for final skin closure. A Silverlon dressing was placed. Patient was awakened by anesthesia and transferred to the [facility]. Patient was then transferred to the PACU for recovery. During the course of the procedure the physician barrel drum cutter (PE) played a vital role. Their intimate knowledge of my steps in the procedure aided in safe and expedient completion of the procedure. The PE played a vital rolls in positioning particularly in obtaining the appropriate positioning of the sacral bump. The PE was also vital in the retraction of soft tissues during the exposure and especially the femoral work as this is a vital part of the procedure to prevent complications and fractures. The PE was also vital and protecting soft tissues during times of bony cuts and reaming. He also played a vital role in closure with my direct supervision. The PE was also important during reduction and dislocation of the joint and trials intraoperatively. Postoperative plan: Patient will get 24 hours postop antibiotics. Patient will get in-house physical therapy and will be weight-bear as tolerated. Patient will follow up in office in 2 weeks for a wound check and x-rays. Aspirin 81 mg twice daily. Complications No intraoperative complications Admit VTE Documentation VTE Present on Admission: No VTE Mechan Device Prophylaxis: SCD's and Thigh High FARTUN Hose VTE Pharm Prophylaxis ordered?: Yes
[2023-04-13 07:11] LABS: Bedside Glucose 120 mg/dL (74-106)
[2023-04-13] MEDS: Cefazolin 2 GM in 0.9% Normal Saline (100mL Bag) 100 ML IV (07:28)
[2023-04-13] MEDS: TXA 1000mg in NS100 100ml (IVPB at Incision) 660 MG IV (07:38)
[2023-04-13] MEDS: dexAMETHasone 10 MG/ML Vial IV (08:15)
--- NOTE | 2023-04-13 08:30 | RAD_ITS ---
STUDY: X-RAY - PELVIS AND RIGHT HIP REASON FOR EXAM: Male, 62 years old. Anterior right total hip arthroplasty. TECHNIQUE: 3 views of the pelvis and hip. COMPARISON: None. FINDINGS: Intraoperative imaging provided for right anterior total hip arthroplasty. RAD/Hip 1 view with Pelvis IMPRESSION: Intraoperative imaging provided for right anterior total hip arthroplasty. Electronically Signed: Fabrice Conklin MD at 10:28 EST ,
[2023-04-13] MEDS: TXA 1000mg in NS100 100ml (IVPB at Closure) 660 MG IV (08:43)
[2023-04-13] MEDS: JPS (Morphine 10mg/ml) OPERA.SITE (08:46)
--- NOTE | 2023-04-13 09:45 | RAD_ITS ---
STUDY: X-RAY - PELVIS AND RIGHT HIP REASON FOR EXAM: Male, 62 years old. FIDE -- in PACU TECHNIQUE: 2 views of the pelvis and hip. COMPARISON: Comparison is made with prior study dated April 11, 2019. FINDINGS: The patient is status post right total hip replacement. There is good alignment. RAD/Hip Min 2 Views (Portable) IMPRESSION: Status post right total hip replacement. There is good alignment. Electronically Signed: Fabrice Conklin MD at 10:28 EST ,
[2023-04-13] MEDS: Ketorolac 30 MG/ML Syringe IV (10:39)
[2023-04-13] MEDS: Cefazolin 1 GM/50 ML BAG IV (12:56)
== END 2023-04-13 15:33 | disposition home or self-care (01) ==
LOC: SDC 05:22 → AC 05:23
PROVIDERS: Anesthesiology; Physician Assistant Surgical; PCP Family Medicine; Referring Provider Specialist; Visit Provider Specialist
PROC: (CPT 27284; principal; 2023-04-13 07:05)
DX: M16.11 Unilateral primary osteoarthritis, right hip (principal); E66.9 Obesity, unspecified; Z96.642 Presence of left artificial hip joint; Z68.34 Body mass index [BMI] 34.0-34.9, adult
CPT/HCPCS: 27130; 01214; 36415; 73501; 73502; 76000; 80048; 82040; 82962; 83735; 85025; 87081; 88305; 88311; 93005; 97162; C1776; J7120; J3475

== ENCOUNTER → 2023-11-25 | Outpatient (CLI) | payer OTHER, SELFPAY ==
--- NOTE | 2023-11-25 14:22 | RAD_ITS ---
EXAM: XR CERVICAL SPINE, 4 OR 5 VIEWS CLINICAL INDICATION: NECK PAIN TECHNIQUE: Frontal, lateral and bilateral oblique views of the cervical spine. COMPARISON: No relevant prior studies available. FINDINGS: VERTEBRAE: There is left bony neural foraminal narrowing at C5-6. Preserved vertebral body height. No acute fracture. No spondylolisthesis. Preservation of the normal cervical lordosis. No significant facet arthropathy. DISC SPACES: There is disc space narrowing C5-6. SOFT TISSUES: Unremarkable. No prevertebral soft tissue widening. LUNG APICES: Clear. RAD/Cerv Spine 4 or 5 Views IMPRESSION: 1. No acute osseous abnormalities. 2. Degenerative changes at C5-C6 with disc space narrowing and bony neural foraminal narrowing. Electronically Signed: Regan Torrez MD at 19:55 EDT ,
[2023-11-25 18:42] LABS: AST(SGOT) 21 U/L (15-37); Alanine Aminotransfer ALT/SGPT 27 U/L (16-61); Albumin, Serum 3.4 g/dL (3.2-5.0); Alkaline Phosphatase 94 U/L (45-117); Bilirubin, Direct 0.31 mg/dL (0.00-0.30); Cholesterol 168 mg/dL (200); Globulin 3.4 g/dL (2.2-4.2); High Density Lipoprotein 39 mg/dL; PSA,Total - Annual Screen 0.66 ng/mL (0.00-4.00); Protein, Total 6.8 g/dL (6.4-8.2); Triglycerides 177 mg/dL; Very Low Density Lipoprotein 35 mg/dL (5-40)
== END | disposition home or self-care (01) ==
PROVIDERS: PCP Family Medicine; Referring Provider Family Medicine; Visit Provider Family Medicine
DX: Z00.00 Encounter for general adult medical examination without abnormal findings (principal); M54.12 Radiculopathy, cervical region; M54.2 Cervicalgia; Z12.5 Encounter for screening for malignant neoplasm of prostate
CPT/HCPCS: 36415; 72050; 80061; 80076; 84153; G0103

== ENCOUNTER → 2024-11-26 | Outpatient (CLI) | payer MEDICARE, OTHER, SELFPAY ==
[2024-11-26 13:08] LABS: AST(SGOT) 35 U/L (<=37); Alanine Aminotransfer ALT/SGPT 26 U/L (<=46); Albumin, Serum 4.0 g/dL (3.4-4.8); Alkaline Phosphatase 85 U/L (40-129); Anion Gap 12 (5-15); BUN 15 mg/dL (4-19); BUN/Creat Ratio 17.4 RATIO (10-20); Calcium,Total 8.8 mg/dL (7.6-11.0); Carbon Dioxide 21.3 mmol/L (21.0-32.0); Chloride 108 mmol/L (98-108); Globulin 3.0 g/dL (2.2-4.2); Glucose 109 mg/dL (70-99); PSA,Total - Annual Screen 0.66 ng/mL (0.02-4.00); Potassium 4.2 mmol/L (3.3-5.1)
--- OUTSIDE RECORDS SUMMARY | 2024-11-26 20:48 | XMS RPT_ITS | CCD ---
Author Organization [facility] Care Team Providers Care Bacteriologist Food Name Role Phone Karon Van Unavailable Unavailable Karon Van Unavailable Unavailable No Doctor Assigned, Nodr Unavailable Unavail able Monica Schroeder Primary Care Provider KARON VAN Admitting Unavailable TESSA PATINO Attending Unavailab le KARON VAN Referring Unavailable MONICA SCHROEDER Primary Care Unavailable Tessa Patino Admitting Unavailable Tessa Patino Attending Unavailable Monica Schroeder Primary Care Provider Dr. Monica Schroeder Primary Care Provider [phone] Satish Escamilla Attending Provider [phone] Shan Sims Referring Provider Monica Schroeder Referring Unavailable Monica Schroeder Attending Unavailable Monica Schroeder Primary Care Unavailable Medications Current Medications Medication Drug Class(es) Dates Sig (Normalized) Sig (Original) X6-Cvbru-R70-Coffee-P hosphatid (Neuriva Plus Brain Performance) 1.7 mg-400 mcg- 2.4 mcg capsule (1 source) Start: 03-15-2023 take 1 capsule by mouth once daily Y2-Ereif-K83-Coffee- Phosphatid (Neuriva Plus Brain Performance) 1.7 mg-400 mcg- 2.4 mcg capsule Active 1 CAP PO DAILY March 15, 2023 12:00am cholecalciferol 0.125 mg oral capsule (1 source) Vitamin D Start: 03-19-2019 take 125 ug by mouth twice daily Cholecalciferol (Vitamin D3) Active 125 MCG PO TWICE A DAY March 19, 2019 1:00am Tlnkdo-Zfvscn-Q.Ginse ng, Herbs (1 source) Start: 03-15-2023 take 1 capsule by mouth once daily Uxzxkd-Kadvhk-ZBarb martinez, Herbs Active 1 CAP PO DAILY March 15, 2023 12:00am magnesium oxide 250 mg oral tablet (2 sources) Start: 03-19-2019 take 300 mg by mouth twice daily Magnesium Oxide Active 300 MG PO TWICE A DAY March 19, 2019 12:00am meloxicam 15 mg oral tablet (2 sources) Nonsteroidal Anti-inflammatory Drug Start: 03-19-2019 take 15 mg by mouth once daily Meloxicam Active 15 MG PO DAILY March 19, 2019 12:00am Np-Jn-Qmktsj-Zeax-Joe mk-Hb277 (Macular Health Formula) 5-1-7.5 mg capsule (1 source) Start: 03-15-2023 Kr-Yh-Udfdnb-Zeax-Bi lber-Hb277 (Macular Health Formula) 5-1-7.5 mg capsule Active 1 CAP PO TWICE A DAY March 15, 2023 12:00am Coklo-2-Oaz-Epa-Dpa-F nikko Oil (2 sources) Start: 03-19-2019 take 1 capsule by mouth twice daily Homrf-0-Goh-Epa-Dpa- Fish Oil Active 1 CAP PO TWICE A DAY March 19, 2019 12:00am Start: 03-19-2019 Iucbb-7-Zsb-Ep a-Dpa-Fish Oil Active 1 EACH PO TWICE A DAY March 19, 2019 1:00am Turmeric extract (2 sources) Start: 03-19-2019 take 400 mg by mouth twice daily Turmeric Active 400 MG PO TWICE A DAY March 19, 2019 12:00am Start: 03-19-2019 take 266 mg by mouth twice lisa ly Turmeric Active 266 MG PO TWICE A DAY March 19, 2019 1:00am Vitamin D3-Vitamin K2 (1 source) Start: 03-15-2023 take 1 capsule by mouth once daily Vitamin D3-Vitamin K2 Active 1 CAP PO DAILY March 15, 2023 12:00am Zinc (2 sources) Start: 03-19-2019 take 10 mg by mouth once daily Zinc Active 10 MG PO DAILY March 19, 2019 12:00am Start: 03-19-2019 take 50 mg by mouth twice pepito y Zinc Active 50 MG PO TWICE A DAY March 19, 2019 1:00am Problems Problem Classification Problem Date Documented Da te Episodic/Chronic Osteoarthritis (6 sources) Unilateral primary osteoarthritis, left hip; Translations: [Unilateral primary osteoarthritis, right hip] Onset: 04-10-2018 Chronic Other non-traumatic joint disorders (1 source) Hip pain; Translations: [Bilateral hip pain] Episodic Other non-traumatic joint disorders (2 sources) Pain in right hip; Translations: [Pain in right hip] Onset: 04-10-2018 Episodic Other non-traumatic joint disorders (2 sources) Pain in left hip; Translations: [Pain in left hip] Onset: 04-10-2018 Episodic Results Test Name Value Interpretation Reference Range Facility Cerv Spine 4 or 5 Viewson Cerv Spine 4 or 5 Views [facility] Imaging Services [address] [place] [id number] [id number] Cerv Spine 4 or 5 Views MR#: [id number] Acct: [id number] Name: RILEY VALLECILLO Rep #: [id number] : [id number] M 62 From: Regan Torrez MD PCP: Dr. Monica Schroeder DO Status: REG CLI Study: Cerv Spine 4 or 5 Views Date of Exam: 11/25/23 Exam# [id number] Ordering Dr: Monica Schroeder DO [id number] EXAM: XR CERVICAL SPINE, 4 OR 5 VIEWS CLINICAL INDICATION: NECK PAIN TECHNIQUE: Frontal, lateral and bilateral oblique views of the cervical spine. COMPARISON: No relevant prior studies available. FINDINGS: VERTEBRAE: There is left bony neural foraminal narrowing at C5-6. Preserved vertebral body height. No acute fracture. No spondylolisthesis. Preservation of the normal cervical lordosis. No significant facet arthropathy. DISC SPACES: There is disc space narrowing C5-6. SOFT TISSUES: Unremarkable. No prevertebral soft tissue widening. LUNG APICES: Clear. RAD/Cerv Spine 4 or 5 Views IMPRESSION: 1. No acute osseous abnormalities. 2. Degenerative changes at C5-C6 with disc space narrowing and bony neural foraminal narrowing. Electronically Signed: Regan Torrez MD at 19:55 EDT , CC: Dr. 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, [address] Cholesterol in HDL [Mass/Vol] 39 mg/dL Low [facility] Comment on above: Result Comment: The drugs N-Acetylcysteine and Metamizole may falsely depress this assay. Reference Range HDL <40 mg/dL Low HDL Cholesterol HDL >or= 60 mg/dL High HDL Cholesterol Performed By: #### L 500.4100, L500.3400, L501.9910 #### [facility] [address] [place], [address] Cholesterol in LDL [Mass/Vol] 94 mg/dL Normal 0-130 [facility] Comment on above: Performed By: #### L 500.4100, L500.3400, L501.9910 #### [facility] [address] [place], [address] Cholesterol in VLDL [Mass/Vol] 35 mg/dL Normal 5-40 [facility] Comment on above: Performed By: #### L 500.4100, L500.3400, L501.9910 #### [facility] [address] [place], [address] Triglyceride [Mass/Vol] 177 mg/dL Normal [facility] Comment on above: Result Comment: The drugs N-Acetylcysteine and Metamizole may falsely depress this assay. Serum Triglycerides Reference Interval Normal <150 mg/dL Borderline high 150 - 199 mg/dL High 200 - 499 mg/dL Very High > or = 500 mg/dL Performed By: #### L 500.4100, L500.3400, L501.9910 #### [facility] [address] [place], [address] Liver Profileon 11-25-2023 Albumin [Mass/Vol] 3.4 g/dL Normal 3.2-5.0 [facility] Comment on above: Performed By: #### L 500.4100, L500.3400, L501.9910 #### [facility] [address] [place], [address] ALK P 94 U/L Normal 45-117 [facility] Comment on above: Performed By: #### L 500.4100, L500.3400, L501.9910 #### [facility] [address] [place], [address] ALT [Catalytic activity/Vol] 27 U/L Normal 16-61 [facility] Comment on above: Performed By: #### L 500.4100, L500.3400, L501.9910 #### [facility] [address] [place], [address] AST [Catalytic activity/Vol] 21 U/L Normal 15-37 [facility] Comment on above: Performed By: #### L 500.4100, L500.3400, L501.9910 #### [facility] [address] [place], [address] Bilirubin [Mass/Vol] 1.60 mg/dL High 0.20-1.00 [facility] Comment on above: Result Comment: For patients on eltrombopag therapy, use of Dimension [place] TBIL is not recommended. Performed By: #### L 500.4100, L500.3400, L501.9910 #### [facility] [address] [place], [address] Bilirubin.direct [Mass/Vol] 0.31 mg/dL High 0.00-0.30 [facility] Comment on above: Performed By: #### L 500.4100, L500.3400, L501.9910 #### [facility] [address] [place], [address] Globulin (S) [Mass/Vol] 3.4 g/dL Normal 2.2-4.2 [facility] Comment on above: Performed By: #### L 500.4100, L500.3400, L501.9910 #### [facility] [address] [place], [address] T PROT 6.8 g/dL Normal 6.4-8.2 [facility] Comment on above: Performed By: #### L 500.4100, L500.3400, L501.9910 #### [facility] [address] [place], [address] PSA,Total - Annual Screenon 11-25-2023 PSA,TOT SCREEN 0.66 ng/mL Normal 0.00-4.00 [facility] Comment on above: Result Comment: This test was performed using the TPSA assay method for the [employer] chemistry system. Values obtained with different assay methods cannot be used interchangably. When changing PSA assays in the course of monitoring a patient, additional sequential testing should be carried out to confirm baseline values. Performed By: #### L 500.4100, L500.3400, L501.9910 #### [facility] [address] [place], [address] Thin prep Papanicolaou smear with manual screeningOrdered By: Shan Sims on 04-13-2023 Thin prep Papanicolaou smear with manual screening 120 mg/dL 74-106 [facility] Comment on above: MANAGEMENT OF PATIEN T CARE PER NURSING PROTOCOL Serum or plasma albumin jonas urement (mass/volume)Ordered By: Kwame Whatley on 03-28-2023 Albumin [Mass/Vol] 3.7 g/dL 3.2-5.0 [facility] Absolute lymphocyte countOrd ered By: Shan Sims on 03-25-2023 Lymphocytes Auto (Unsp spec) [#/Vol] 1.20 10*3/uL 0.83-4.51 [facility] Basophil percentageOrdered B y: Shan Sims on 03-25-2023 Basophils/100 WBC (Bld) 0.5 % 0-1 [facility] Chloride [Moles/Vol] 107 mmol/L 98-107 [facility] Eosinophils/100 WBC (Bld) 1.2 % 0-5 [facility] Glucose [Mass/Vol] 133 mg/dL 74-106 [facility] Comment on above: Fasting Glucose resu lt greater than or equal to 126 mg/dL suggests DIABETES MELLITUS per A.D.A. criteria. Neutrophils (Bld) [#/Vol] 4.2 10*3/uL 2.0-7.7 [facility] Neutrophils/100 WBC (Bld) 71.0 % 47-70 [facility] Potassium [Moles/Vol] 4.0 mmol/L 3.5-5.1 [facility] Sodium [Moles/Vol] 139 mmol/L 136-145 [facility] WBC (Bld) [#/Vol] 5.9 10*3/uL 4.4-11.0 [facility] Blood erythrocytes count (nu mber/volume)Ordered By: Shan Sims on 03-25-2023 RBC (Bld) [#/Vol] 5.02 10*6/uL 4.6-6.2 [facility] Blood hemoglobin measurement (mass/volume)Ordered By: Shan Sims on 03-25-2023 Hemoglobin (Bld) [Mass/Vol] 15.7 g/dL 13.0-16.5 [facility] Blood lymphocytes/100 leukoc ytesOrdered By: Shan Sims on 03-25-2023 Lymphocytes/100 WBC (Bld) 20.5 % 19-41 [facility] Blood monocytes/100 leukocyt esOrdered By: Shan Sims on 03-25-2023 Monocytes/100 WBC (Bld) 6.5 % 0-10 [facility] Blood platelet mean volumeOr dered By: Shan Sims on 03-25-2023 Platelet mean volume (Bld) [Entitic vol] 9.1 fL 6.2-12.0 [facility] Determination of erythrocyte mean corpuscular volume (MCV)Ordered By: Shan Sims on 03-25-2023 MCV (RBC) [Entitic vol] 94.4 fL 80-94 [facility] Hematocrit Auto (Bld) [Volum e fraction]Ordered By: Shan Sims on 03-25-2023 Hematocrit (Bld) [Volume fraction] 47.4 % 40-54 [facility] - Chemistry and C hemistry - challengeOrdered By: Shan Sims on 03-25-2023 CO2 [Moles/Vol] 28.0 mmol/L 21.0-32.0 [facility] Urea nitrogen/Creatinine [Mass ratio] 16.6 mg/mg 10-20 [facility] - Hematology and Cell countsOrdered By: Shan Sims on 03-25-2023 Erythrocyte distribution width (RBC) [Entitic vol] 43.9 fL 35.1-43.9 [facility] Erythrocyte distribution width (RBC) [Ratio] 12.8 % 11.6-14.6 [facility] Immature granulocytes/100 WBC (Bld) 0.300 % 0.0-0.9 [facility] Comment on above: IG% - Immature Granu locytes (promyelocytes, myelocytes and metamyelocytes) > 1% indicates that a LEFT SHIFT is Present. MCH (RBC) [Entitic mass] 31.3 pg 27.0-32.0 [facility] Nucleated RBC/100 WBC (Bld) [Ratio] 0 % 0-5 [facility] MCHC Auto (RBC) [Mass/Vol]Or dered By: Shan Sims on 03-25-2023 MCHC (RBC) [Mass/Vol] 33.1 g/dL 32-36 [facility] No Panel InformationOrdered By: Shan Sims on 03-25-2023 Estimated GFR (MDRD) Amer 101 mL/min >60 [facility] Comment on above: GFR Calc Estimated GFR (MDRD) Non-Af Amer 83 mL/min >60 [facility] Comment on above: Non- GFR Calc Platelets bldOrdered By: Jeff Sims on 03-25-2023 Platelets (Bld) [#/Vol] 297 10*3/uL 150-450 [facility] Serum or plasma calcium jonas urement (mass/volume)Ordered By: Shan Sims on 03-25-2023 Calcium [Mass/Vol] 9.0 mg/dL 8.5-10.1 [facility] Serum or plasma creatinine m easurement (mass/volume)Ordered By: Shan Sims on 03-25-2023 Creatinine [Mass/Vol] 0.96 mg/dL 0.70-1.30 [facility] Comment on above: The validity of the calculated GFR & GFRAA in patients over 70 years has not been determined. Clinical correlation is essential. Serum or plasma urea nitroge n measurement (mass/volume)Ordered By: Shan Sims on 03-25-2023 Urea nitrogen [Mass/Vol] 16 mg/dL 7-18 [facility] Thin prep Papanicolaou smear with manual screeningOrdered By: Shan Sims on 03-25-2023 Thin prep Papanicolaou smear with manual screening 4 5-15 [facility] - Chemistry and C hemistry - challengeOrdered By: Yaron Mederos on 03-16-2023 Magnesium [Mass/Vol] 2.3 mg/dL 1.6-2.6 [facility] No Panel InformationOrdered By: Shan Sims on 03-16-2023 Nasal Screen MRSA/MSSA [facility] Absolute lymphocyte countOrd ered By: Monica Schroeder on 11-23-2022 Lymphocytes Auto (Unsp spec) [#/Vol] 1.19 10*3/uL 0.83-4.51 [facility] Basophil percentageOrdered B y: Monica Schroeder on 11-23-2022 Basophils/100 WBC (Bld) 0.5 % 0-1 [facility] Bilirubin [Mass/Vol] 1.50 mg/dL 0.20-1.00 [facility] Comment on above: For patients on eltr ombopag therapy, use of Dimension [place] TBIL is not recommended. Chloride [Moles/Vol] 106 mmol/L 98-107 [facility] Cholesterol [Mass/Vol] 184 mg/dL <200 [facility] Comment on above: <200 mg/dL Desirable 200-240 mg/dL Borderline >240 mg/dL High Risk Eosinophils/100 WBC (Bld) 1.2 % 0-5 [facility] Glucose [Mass/Vol] 98 mg/dL 74-106 [facility] Neutrophils (Bld) [#/Vol] 4.1 10*3/uL 2.0-7.7 [facility] Neutrophils/100 WBC (Bld) 70.3 % 47-70 [facility] Potassium [Moles/Vol] 4.6 mmol/L 3.5-5.1 [facility] Protein [Mass/Vol] 7.4 g/dL 6.4-8.2 [facility] Sodium [Moles/Vol] 139 mmol/L 136-145 [facility] Triglyceride [Mass/Vol] 78 mg/dL <199 [facility] Comment on above: The drugs N-Acetylcy steine and Metamizole may falsely depress this assay.Serum Triglycerides Reference Interval Normal <150 mg/dL Borderline high 150 - 199 mg/dL High 200 - 499 mg/dL Very High > or = 500 mg/dL WBC (Bld) [#/Vol] 5.8 10*3/uL 4.4-11.0 [facility] Blood erythrocytes count (nu mber/volume)Ordered By: Monica Schroeder on 11-23-2022 RBC (Bld) [#/Vol] 5.16 10*6/uL 4.6-6.2 [facility] Blood hemoglobin measurement (mass/volume)Ordered By: Monica Schroeder on 11-23-2022 Hemoglobin (Bld) [Mass/Vol] 15.9 g/dL 13.0-16.5 [facility] Blood lymphocytes/100 leukoc ytesOrdered By: Monica Schroeder on 11-23-2022 Lymphocytes/100 WBC (Bld) 20.5 % 19-41 [facility] Blood monocytes/100 leukocyt esOrdered By: Monica Schroeder on 11-23-2022 Monocytes/100 WBC (Bld) 7.2 % 0-10 [facility] Blood platelet mean volumeOr dered By: Monica Schroeder on 11-23-2022 Platelet mean volume (Bld) [Entitic vol] 9.9 fL 6.2-12.0 [facility] Determination of erythrocyte mean corpuscular volume (MCV)Ordered By: Monica Schroeder on 11-23-2022 MCV (RBC) [Entitic vol] 96.5 fL 80-94 [facility] Hematocrit Auto (Bld) [Volum e fraction]Ordered By: Monica Schroeder on 11-23-2022 Hematocrit (Bld) [Volume fraction] 49.8 % 40-54 [facility] - Chemistry and C hemistry - challengeOrdered By: Monica Schroeder on 11-23-2022 ALP [Catalytic activity/Vol] 90 U/L 45-117 [facility] ALT [Catalytic activity/Vol] 29 U/L 16-61 [facility] CO2 [Moles/Vol] 28.0 mmol/L 21.0-32.0 [facility] Globulin (S) [Mass/Vol] 3.8 g/dL 2.2-4.2 [facility] Urea nitrogen/Creatinine [Mass ratio] 15.4 mg/mg 10-20 [facility] - Hematology and Cell countsOrdered By: Monica Schroeder on 11-23-2022 Erythrocyte distribution width (RBC) [Entitic vol] 45.5 fL 35.1-43.9 [facility] Erythrocyte distribution width (RBC) [Ratio] 12.6 % 11.6-14.6 [facility] Immature granulocytes/100 WBC (Bld) 0.300 % 0.0-0.9 [facility] Comment on above: IG% - Immature Granu locytes (promyelocytes, myelocytes and metamyelocytes) > 1% indicates that a LEFT SHIFT is Present. MCH (RBC) [Entitic mass] 30.8 pg 27.0-32.0 [facility] Nucleated RBC/100 WBC (Bld) [Ratio] 0 % 0-5 [facility] MCHC Auto (RBC) [Mass/Vol]Or dered By: Monica Schroeder on 11-23-2022 MCHC (RBC) [Mass/Vol] 31.9 g/dL 32-36 [facility] No Panel InformationOrdered By: Monica Schroeder on 11-23-2022 Estimated GFR (MDRD) Amer 108 mL/min >60 [facility] Comment on above: GFR Calc Estimated GFR (MDRD) Non-Af Amer 89 mL/min >60 [facility] Comment on above: Non- GFR Calc Prostate Specific Antigen Screen 0.70 ng/mL 0.00-4.00 [facility] Comment on above: This test was perfor med using the TPSA assay method for the[employer] chemistry system. Values obtained with differentassay methods cannot be used interchangably.When changing PSA assays in the course of monitoring apatient, additional sequential testing should be carriedout to confirm baseline values. Platelets bldOrdered By: Etelvina Schroeder on 11-23-2022 Platelets (Bld) [#/Vol] 281 10*3/uL 150-450 [facility] Serum or plasma albumin jonas urement (mass/volume)Ordered By: Monica Schroeder on 11-23-2022 Albumin [Mass/Vol] 3.6 g/dL 3.2-5.0 [facility] Serum or plasma albumin/glob ulin mass ratioOrdered By: Monica Schroeder on 11-23-2022 Albumin/Globulin [Mass ratio] 0.9 {ratio} 0.9-2.4 [facility] Serum or plasma calcium jonas urement (mass/volume)Ordered By: Monica Schroeder on 11-23-2022 Calcium [Mass/Vol] 8.8 mg/dL 8.5-10.1 [facility] Serum or plasma cholesterol in HDL measurement (mass/volume)Ordered By: Monica Schroeder on 11-23-2022 Cholesterol in HDL [Mass/Vol] 48 mg/dL >40 [facility] Comment on above: The drugs N-Acetylcy steine and Metamizole may falsely depress this assay. Reference Range HDL <40 mg/dL Low HDL Cholesterol HDL >or= 60 mg/dL High HDL Cholesterol Serum or plasma cholesterol in VLDL measurement (mass/volume)Ordered By: Monica Schroeder on 11-23-2022 Cholesterol in VLDL [Mass/Vol] 16 mg/dL 5-40 [facility] Serum or plasma creatinine m easurement (mass/volume)Ordered By: Monica Schroeder on 11-23-2022 Creatinine [Mass/Vol] 0.91 mg/dL 0.70-1.30 [facility] Comment on above: The validity of the calculated GFR & GFRAA in patients over 70 years has not been determined. Clinical correlation is essential. Serum or plasma low density lipoprotein (LDL) cholesterol measurement (mass/volume)Ordered By: Monica Schroeder on 11-23-2022 Cholesterol in LDL [Mass/Vol] 120 mg/dL 0-130 [facility] Serum or plasma urea nitroge n measurement (mass/volume)Ordered By: Monica Schroeder on 11-23-2022 Urea nitrogen [Mass/Vol] 14 mg/dL 7-18 [facility] Thin prep Papanicolaou smear with manual screeningOrdered By: Monica Schroeder on 11-23-2022 Thin prep Papanicolaou smear with manual screening 26 U/L 15-37 [facility] Thin prep Papanicolaou smear with manual screening 5 5-15 [facility] XR HIPS BILATERAL WITH PELVI S 3-4 VIEWSon 04-10-2018 XR HIPS BILATERAL WITH PELVIS 3-4 VIEWS X-ray of the right and left hip 2 views AP pelvis and frog-leg view of the right and left hip shows near end-stage right hip arthrosis with femoral head osteophytes however the left hip show severe end-stage left hip degenerative arthrosis with large acetabular and femoral head cyst consistent with severe arthrosis Dictated by: TESSA PATINO on TueApr 10, 2018 10:17:39 AM EST Transcribed by: TESSA PATINO on TueApr 10, 2018 10:17:39 AM EST Finalized by: TESSA PATINO on TueApr 10, 2018 10:17:39 AM EST Normal [facility] Ambulatory XR Hips Bilateral With Pelvi s 3-4 Viewson 04-10-2018 X-ray of the right and left hip 2 views AP pelvis and frog-leg view of the right and left hip shows near end-stage right hip arthrosis with femoral head osteophytes however the left hip show severe end-stage left hip degenerative arthrosis with large acetabular and femoral head cyst consistent with severe arthrosis [facility] XR Spine Lumbar w/ Obliqueso n 01-16-2018 XR Spine Lumbar w/ Obliques Exam Date/Time:01/14/2018 10:57 EDTReason for Exam:M99.03ReportSTU DY:XR Spine Lumbar w/ Obliques; 01/14/2018 10:57 amINDICATION:M99.03. COMPARISON:None.ACCE SSION NUMBER(S):[id number] CLINICIAN:Karon Scott:Fi ve views of the lumbar spine including AP, lateral, lateral cone-down and bilateral oblique views were obtained. There is no acute fracture identified. The vertebral bodies are well aligned without evidence of subluxation. Mild disc space narrowing and small marginal osteophytes are seen throughout the lumbar spine, greatest at the L3-4 level. Ciqh-pt-yvorpufc facet degenerative changes are seen throughout the lumbar spine. There is no evidence of pars interarticularis defect.IMPRESSION:1. No evidence of acute fracture.2. Degenerative changes throughout the lumbar spine, as described above. FINAL REPORT Dictated: 01/16/2018 8:56 am Andres Sarabia MD CSigned (Electronic Signature): 01/16/2018 8:56 amSigned by: Andres Sarabia MD Technologist: R [facility] Vital Signs Date Time Vital Sign Value Performing Clinician Faci micheline 04-13-2023 15:26-0500 Body temperature 97 [degF] Dr. Monica Schroeder Work Phone: [facility] 04-13-2023 15:26-0500 Diastolic blood pressure 81 mm[Hg] Dr. Monica Schroeder Work Phone: [facility] 04-13-2023 15:26-0500 Heart rate 96 /min Dr. Monica Schroeder Work Phone: [facility] 04-13-2023 15:26-0500 Respiratory rate 16 /min Dr. Monica Schroeder Work Phone: [facility] 04-13-2023 15:26-0500 SaO2% (BldA) [Mass fraction] 93 % Dr. Monica Schroeder Work Phone: [facility] 04-13-2023 15:26-0500 Systolic blood pressure 128 mm[Hg] Dr. Monica Schroeder Work Phone: [facility] 04-13-2023 10:15-0500 Inhaled oxygen flow rate 4 L/min Dr. Monica Schroeder Work Phone: [facility] 04-13-2023 06:11-0500 Body height 177.[address] Monica Schroeder Work Phone: [facility] 04-13-2023 06:11-0500 Body mass index (BMI) [Ratio] 35.4 kg/m2 Dr. Monica Schroeder Work Phone: [facility] 04-13-2023 06:11-0500 Body weight 112.[address] Monica Schroeder Work Phone: [facility] 04-10-2018 08:19-0500 BMI (Body Mass Index) 33 kg/m2 Tessajo-ann Patino [facility] 04-10-2018 08:19-0500 BP Diastolic 87 mm[Hg] [facility] 04-10-2018 08:19-0500 BP Systolic 150 mm[Hg] [facility] 04-10-2018 08:19-0500 Height 177.8 cm Tessa [facility] 04-10-2018 08:19-0500 Pulse (Heart Rate) 63 /min [facility] 04-10-2018 08:19-0500 Weight 104.33 kg Tessa [facility] Encounters Encounter Date Encounter Type Care Provider Facility Start: 10-23-2024 Encounter for genera l adult medical examination without abnormal findings Monica [facility] Start: 11-25-2023 End: 11-25-2023 ambulatory Monica Schroeder Facility:[facility] Start: 04-13-2023 End: 04-13-2023 Admission to same day surgery center Dr. Monica Schroeder Work Phone: [facility] Start: 04-13-2023 End: 04-13-[address] Monica Schroeder Work Phone: [facility] Work Phone: Start: 03-16-2023 End: 03-16-2023 Non-patient / Non-visit Dr. Monica Schroeder Work Phone: [facility] Work Phone: Start: 11-23-2022 End: 11-23-2022 ambulatory [facility] Work Phone: Start: 11-23-2022 End: 11-23-2022 Patient encounter procedure [facility] Start: 05-15-2020 End: 05-15-2020 Orders Only Marianne Fatima Dexterjace Work Phone: [facility] Start: 04-10-2018 End: 04-10-2018 Patient encounter procedure KARON VAN [facility] Start: 04-10-2018 End: 04-10-2018 Office outpatient new 20 minutes Karon Van Work Phone: [facility] Comment on above: Arthritis of left hi p (Primary Dx); Bilateral hip pain; Arthritis of right hip Start: 01-14-2018 End: 01-15-2018 Patient encounter procedure Karon Van Facility:[facility] Start: 01-14-2018 Patient encounter procedure Facility:[id number] Procedures Date Procedure Procedure Detail Performing Clinician Start: 04-13-2023 Plain X-ray of hip Dr. Monica Schroeder Work Phone: Start: 04-13-2023 Fluoroscopic guidance Carlos Schroeder Work Phone: Start: 04-13-2023 Plain x-ray of pelvi s and lower extremity Dr. Monica Schroeder Work Phone: Start: 04-13-2023 Total replacement of hip Dr. Monica Schroeder Work Phone: Start: 03-16-2023 Nasal Screen MRSA/MSSA Dr. Monica Schroeder Work Phone: Start: 04-10-2018 Radex hips bilateral with pelvis 3-4 views Tessa Patino Work Phone: Plan of Treatment Date Care Activity Detail Author Start: 04-13-2023 Application of ice collar, cap or bag [facility] Start: 04-13-2023 Exercises [facility] Start: 04-13-2023 Incentive spirometry [facility] Start: 04-13-2023 Neurovascular assessment [facility] Start: 04-13-2023 Patient discharge [facility] Start: 04-13-2023 Patient education [facility] Start: 04-13-2023 Provision of activity privileges [facility] Start: 04-13-2023 Recommendation to continue with treatment [facility] Start: 04-13-2023 Referral to service [facility] Start: 04-13-2023 Vital signs measurements [facility] Start: 04-13-2023 Wound care [facility] Start: 04-13-2023 [facility] Start: 11-13-2019 Influenza vaccination given Sequential Influenza Vaccine (#1) [facility] Start: 11-12-2017 Influenza vaccination given SEQUENTIAL INFLUENZA VACCINE (#1) [facility] Start: 2008 Administration of herpes zoster vaccine Zoster Vaccines (1 of 2) [facility] Start: 2008 Screening for malignant neoplasm of colon [facility] Start: 1976 Hepatitis C antibody, confirmatory test Hepatitis C Screening [facility] Start: 1974 COVID-19 Vaccine (1 of 2) COVID-19 Vaccine (1 of 2) [facility] Start: 1973 HIV screening HIV Screening [facility] Start: 1970 Adolescent depression screening assessment Depression Screening (PHQ9) [facility] Start: 1961 History and physical examination, annual for health maintenance Wellness Visit [facility] Start: 1958 Hepatitis C antibody, confirmatory test HEPATITIS C SCREENING [facility] Start: 1958 Prostate specific antigen measurement PSA Level [facility] Start: 1958 Protein mass conc COLONOSCOPY [facility] Start: 1958 Tetanus vaccination [facility] Electrocardiographic procedure [facility] Patient referral [facility] Work Phone: Payers Date Payer Category Payer Medicare [id number] 2023 Self-pay [id number] 2018 Unknown [id number] [address] [employer] [facility] [employer] xxxxxxxxxxxx 2018-Present [id number] EXC HANGE [facility] [employer] [id number] 2018-Present [id number] 2018 Unknown 1958 Unknown [id number] 1958 Unknown [id number] 1960 Unknown [id number] Unknown [id number] Social History Date Type Detail Facility [facility]: [facility] Start: 04-10-2018 History SDOH Alcohol Frequency 1 [facility] Sex Assigned At Not on file [facility] Start: 04-10-2018 Tobacco use and exposure Never used [facility] Start: 04-10-2018 Alcohol intake Lifetime non-d cleve (finding) [facility] Start: 03-19-2019 End: 03-15-2023 Tobacco smoking status [facility] Unknown if ever smoked [facility] Start: 03-19-2019 Non-smoker [facility] Start: 1960 Sex Assigned At Male W [facility] Medical Equipment Procedure Code Equipment Code Equipment Origin al Text Equipment Identifier Dates Minimally invasive total replacement of hip joint by anterior approach [address] HIP STEM FDA Start: 04-11-2019 Minimally invasive total replacement of hip joint by anterior approach ACETUBULAR SHELL FDA Start: 04-11-2019 Minimally invasive total replacement of hip joint by anterior approach FEMORAL HEAD FDA Start: 04-11-2019 Minimally invasive total replacement of hip joint by anterior approach POLY INSERT FDA Start: 04-11-2019 Minimally invasive total replacement of hip joint by anterior approach 127 DEGREE HIP STEM FDA Start: 04-11-2019 Minimally invasive total replacement of hip joint by anterior approach ACETUBULAR SHELL FDA Start: 04-11-2019 Minimally invasive total replacement of hip joint by anterior approach FEMORAL HEAD FDA Start: 04-11-2019 Minimally invasive total replacement of hip joint by anterior approach POLY INSERT FDA Start: 04-11-2019 Goals Date Patient Goal Desired Activity /State Mental Status Date Assessment Result Facility 04-13-2023 Cognitive function Voice/Name [facility] Work Phone: History and physical note 04-13-2023 Note Date & Type Note Facility 04-13-2023 History and physi alyssa note Note Date/Time March 28, 2023 11:49am [facility] Medical Records Department [address] [place] [address] History & Physical Exam 03/28/23 1148 MR#: [id number] Acct: [id number] Name: RILEY VALLECILLO Rep #:[id number] : 1960 62 From: Kwame ANGULO PA-C PCP: Dr. Monica Schroeder, DO Status:[facility] Location: [place] [address] History and Physical History and Physical? Patient Name: Riley Vallecillo : 1960 From:? KWAME WHATLEY PA-C? DATE OF PRE-OPERATIVE EXAM: 03/28/2023 DATE OF SURGERY:? 04/13/2023 SCHEDULED PROCEDURE:? Right total hip arthroplasty HISTORY OF PRESENT ILLNESS: Preoperative history and physical exam was performed on March 28, 2023.? This is a 62-year-old male who is been having ongoing pain for over 6 months with hisright hip.? He does have past history of a left total hip arthroplasty by Dr. Shan Sims on April 11, 2019.? He is doing well from the left hip.? His pain can reach 6/10 with activities.? His pain is increased with going up and down stairs, driving, walking.? Pain is been intermittent, dull, aching, sharp.?He has difficulty with activities of daily living including shopping and any walking.? Patient has attempted conservative measures including rest, elevation,hospice care consultant and oral medications with minimal relief.? He has attempted Tylenol and ibuprofen and meloxicam without relief.? He denies past history of surgery on the right hip.? After failing conservative measures and discussing all treatment options with Dr. Shan Sims, the patient does wish to proceed with a right total hip arthroplasty.? [facility].? He has medical history pertinent for sleep apnea with use of CPAP.? He denies past history of DVT or pulmonary embolism. REVIEW OF SYSTEMS: Review Of Systems: Constitutional: Denies change in appetite, fever and weight change. Cardiovasular: Denies chest pain, heart murmur and irregular heartbeat. Respiratory: Denies cough, pneumonia, shortness of breath, tuberculosis and wheezing. Gastrointestinal: Denies constipation, diarrhea, heartburn, nausea, rectal itching, bloody stools and vomiting. Genitourinary: Denies incontinence. Musculoskeletal: Reports pain and trouble walking, but denies leg swelling and weakness. Skin: Denies Raynaud's, history of shingles and tattoo. Neurological: Denies ambulatory dysfunction, dizziness, numbness/tingling and tremor. Psychiatric: Denies anxiety, insomnia and stress. Hematologic/Lymphatic: Denies anemia, bleeding/bruising tendency and past transfusion. Reviewed, no changes. PAST MEDICAL HISTORY: Advance Care Plan: No Advance Directives Effective Date: 04/25/2019 Past Medical History: Medical Problems: Sleep Apnea Accidents: LT Arm FX - A CHILD Surgical Hx: Hip Replacement LT - (04/11/2019) SAW @ [facility] Anesthesia Complications: None Assistive Devices: Glasses, Hearing Aid, Cpap Reviewed, no changes. 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 Personal Habits:? Cigarette Use: Never Smoked Cigarettes.Smokeless Tobacco: Never Used Smokeless Tobacco.E-Cigarette Use: Never used.Alcohol: Denies use.Drug Use: Denies Use.Enjoy Exercising: Exercises 1-3 x/month. Reviewed, no changes. VITALS: Ht: 69.9 Wt: 242lb Wt k.771 BMI: 34.8 BP: 142/76 Pulse: 77 T: 97.3 T: 36.3C Pain Level: 6 O2SatR: 95 ALLERGIES: No Known Drug Allergy? MEDICATIONS: Oxycodone HCL 5 mg 1-2 tablets by mouth every 4 hours, Zofran 4 mg 1-2 tablets by mouth every 8 as needed nausea, Famotidine 20 mg 1 tablet by mouth every day,Meloxicam 7.5 mg 1 tablet by mouth twice a day, Magnesium 500 mg two caps po once daily, Whitman 3 1000 mg two caps po once daily, QC Tumeric Complex 500 mg two caps po once daily, Zinc 100 mg one tab po once daily, Vitamin D3 25 mcg (1000 Ut) one cap po once daily, Vitamin K2 100 mcg one cap po once daily, Macular Vitamin Benefit? two tabs po once daily, Neuroflo Plus? three capsules daily PRE-OP EXAM:? General appearance:NORMAL? ? ? Other: Eyes: Conjunctivae and lids: NORMAL? Pupils: ERR Ears, Nose, Mouth, and Throat: NORMAL? Other: Inspection of lips, teeth and gums: NORMAL? ?Other: Neck: Examination of neck: no masses noted. Respiratory: Assessment of respiratory effort: NORMAL? ?Other: ?Auscultation of lungs: clear to auscultation no wheezes, rhonchi or rales. Cardiovascular:? Auscultation of heart: regular rate and rhythm, no murmurs, gallops or rubs. PHYSICAL EXAMINATION: Patient walks with an antalgic gait.? Right hip is without erythema or signs of infection.? He has obligatory external rotation with flexion.? Range of motion: Flexion 80, internal rotation 10, external rotation 18.? He has increased pain with range of motion.? Sensation intact to light touch. IMAGING STUDIES: Previous x-rays of the right hip reveal joint space narrowing, subchondral sclerosis, osteophyte formation consistent with severe stage IV bone on bone erosive osteoarthritis IMPRESSION: 1.? Severe right hip osteoarthritis 2.? Presence of left total hip arthroplasty 2019 3.? Sleep apnea with use of CPAP 4.? Obesity with BMI 34.8 5.? Elevated blood pressure without diagnosis of hypertension PLAN: Dr. Shan Sims did discuss and review with the patient all treatment options including surgical versus nonsurgical options.? Patient does wish to proceed with the above-stated procedure.? Potential risks, benefits, and complications of the procedure were discussed in detail including but not limited to , infection, nerve and blood vessel damage, persistent pain, numbness, tingling, paresthesias, blood clot, pulmonary embolism, and requirement for possible further surgery.? The patient expressed full understanding and has no further questions for the doctor.? Patient does agree to proceed with the above-stated procedure and has signed the surgery consent form. POST-OP MEDICATION PLAN: Pain Medications:? Patient was given the following medications at the preoperative visit: Famotidine, meloxicam, oxycodone, Zofran.? He was instructedto take Aspirin 81 mg enteric-coated, extra strength Tylenol, senna.? He has a walker that he will bring to day of surgery. DVT Prophylaxis:? Aspirin 81 mg twice daily for 4 weeks postoperatively.? Deniespast history of DVT or pulmonary embolism This dictation was created using voice recognition software. Phonetic and/or grammatical errors may exist. ___? I have re-examined the patient.? There are no clinical changes since date of exam. ___? See progress notes for changes. ___? Dictated on admission Date: ? ? ?Time: Signature: _ 03/28/23 1149 <Electronically signed by Kwame ANGULO PA-C> Cosigner Signature (if applicable): CC: AYDEE Whatley; Dr. Monica Schroeder DO; Dr. Shan Sims MD~ Signed ADDENDUM by Dr. Shan Sims MD on 04/13/23 at 0703 Addendum I have examined the patient and the H&P has been reviewed. There are no clinicalchanges since date of exam. 04/13/23 07<Electronically signed by Shan Sims MD> Cosigner Signature (if applicable): cc: AYDEE Whatley; Dr. Monica Schroeder DO; Dr. Shan Sims MD ~* Signed [facility] Work Phone: Procedure note 04-13-2023 Note Date & Type Note Facility 04-13-2023 Procedure note [facility] Hospital Discharge instructions 03-16-2023 Note Date & Type Note Facility 03-16-2023 Hospital Discharg e instructions Ambulatory [id number] Lead EKG [[facility]] Time Frame: 03/16/23, Location: None Selected Additional Instructions Implant Used?: Yes Mohan [facility] Work Phone: Evaluation note Note Date & Type Note Facility Evaluation note No assessment information availa ble [facility] Work Phone: Summary Purpose Family History No Family History Records FoundNo Family History Records FoundNo Family History Records FoundNo Family History Records FoundNo Family History Records Found Advance Directives No Advanced Directives Records Found Advance Directive Response Recorded Date/ Time Living Will No March 19 0 11:23am Power of Events Traffic Controller No March 19 020 11:23am Advance Directive Response Recorded Date/ Time Living Will No March 15 4 9:15am Power of Events Traffic Controller No March 15 024 9:15am Reason for Referral Status Reason Specialty Diagnoses / Procedures Referred By Contact Referred To Contact Authorized Physical Therapy / Rehabilitation Diagnoses Arthritis of left hip Arthritis of right hip Tessa Patino MD [address] [place], [place] [id number] Status Reason Specialty Diagnoses / Procedures Referred By Contact Referred To Contact Closed Sports Medicine Diagnoses Bilateral hip pain Karon Van DC [address] [place] [address] Tessa Patino MD [address] [place] [id number] History of Present Illness * Tessa Patino MD - 04/10/2018 10:17 AM EST Dictation on: 04/10/2018 10:19 AM by: TESSA PATINO [[id number]] in this encounter Assessments Diagnosis Arthritis of left hip- Primary Bilateral hip pain Pain in joint, pelvic region and thigh Arthritis of right hip Chief Complaint and Reason for Visit Chief Complaint PREOP ANTERIOR RIGHT TOTAL HIP ARTHROPLASTY Additional Source Comments (unrecognized sect ion and content) No Status Records FoundNo Status Records FoundNo Status Records FoundNo Status Records FoundNo Status Records Found INFORMATION SOURCE (unrecogn ized section and content) DATE CREATED AUTHOR 02/19/2018 [facility] DATE CREATED AUTHOR AUTHOR'S ORGANIZ ATION 02/19/2018 [facility] DATE CREATED AUTHOR AUTHOR'S ORGANIZ ATION 04/23/2018 [facility] DATE CREATED AUTHOR AUTHOR'S ORGANIZ ATION 04/23/2018 [facility] DATE CREATED AUTHOR AUTHOR'S ORGANIZ ATION 10/25/2024 [facility] Reason for Visit (unrecogniz ed section and content) Reason Comments Pain Status Reason Specialty Diagnoses / Procedures Referred By Contact Referred To Contact Closed Sports Medicine Diagnoses Bilateral hip pain Karon Van DC [address] [place] [address] Tessa Patino MD [address] [place], [place] [id number] Care Teams (unrecognized sec tion and content) Team Status: Active Member Role Status Dates Dr. Monica Schroeder DO Family Provider Active Dr. Monica Schroeder DO Primary Care Provider Active Team Status: Inactive Member Role Status Dates Dr. Monica Schroeder DO Primary Care Prov ider, Attending Provider, Referring Provider Active Team Status: Active Member Role Status Dates Dr. Monica Schroeder DO Primary Care Provider Active Dr. Satish Escamilla MD Attending Provider Active Dr. Shan Sims MD Referring Provider Active Team Status: Inactive Member Role Status Dates Dr. Monica Schroeder DO Primary Care Provider Active Dr. Shan Sims MD Attending Provider, Referring P ronicoder Active JAYSON LuciaC Other Provider Active Goals (unrecognized section and content) Goals may be documented in a n alternate section FOR RECORDS PERTAINING TO PATIENTS WHO ARE OR HAVE BEEN ENROLLED IN A CHEMICAL DEPENDENCY/SUBSTANCEABUSE PROGRAM, SOME INFORMATION MAY BE OMITTED. This clinical summary was aggregated from multiple sources. Caution should be exercised in using it in the provision of clinical care. This summary normalizes information from multiple sources, and as a consequence, information in this document may materially change the coding, format and clinical context of patient data. In addition, data may be omitted in some cases. CLINICAL DECISIONS SHOULD BE BASED ON THE PRIMARY CLINICAL RECORDS. [facility] [employer] [facility]. provides no warranty or guarantee of the accuracy or completeness of information in this document.
== END | disposition home or self-care (01) ==
LOC: BFHLAB 10:50
PROVIDERS: PCP Family Medicine; Visit Provider Family Medicine
DX: Z12.5 Encounter for screening for malignant neoplasm of prostate (principal); E80.6 Other disorders of bilirubin metabolism
CPT/HCPCS: 36415; 80053; 84153; G0103